=== PATIENT | male | born 1965 | race Caucasian/White ===

== ENCOUNTER 2017-12-20 19:47 | Emergency (ER) | payer BC ==
[2017-12-20 19:53] VITALS: BP 136/93; PULSE 86; RESP 18; TEMP 97.9
[2017-12-20] MEDS ORDERED: HYDROcodone/APAP 5-325MG 1 EACH TAB PO STA (20:23)
[2017-12-20] MEDS ORDERED: ceFAZolin 1,000 MG VIAL IM STA (20:23)
[2017-12-20] MEDS ORDERED: LIDOCAINE 1% INJ 10MG/ML (20 ML MDV) SQ ONE (20:33)
--- NOTE | 2017-12-20 20:38 | XR ---
EXAMINATION TYPE: XR finger LT DATE OF EXAM: 12/20/2017 COMPARISON: NONE HISTORY: Laceration of thumb TECHNIQUE: 3 views FINDINGS: There is soft tissue deformity on the dorsum of the IP joint of the thumb consistent with l aceration. I see no fracture nor dislocation. Joint spaces are normal. IMPRESSION: Laceration deformity. No fracture seen.
--- NOTE | 2017-12-20 21:37 | ED ---
General Adult HPI - General Chief complaint: Wound/Laceration Stated complaint: Lac on thumb Time Seen by Provider: 12/20/17 20:10 Source: patient, RN notes reviewed Mode of arrival: ambulatory Limitations: no limitations - History of Present Illness Initial comments: 52-year-old male presents to the emergency department for a chief complaint of laceration to the left thumb 1 hour. Patient states he was using a crossbow when he had his thumb in the wrong area and the string lacerated his finger. Patient denies any difficulty moving the thumb. Patient states it did immediately start bleeding. Patient is up-to-date on tetanus in the past 4 years. He denies any other injuries. Patient has no other complaints at this time including shortness of breath, chest pain, abdominal pain, nausea or vomiting, headache, or visual changes. - Related Data Home Medications Medication Instructions Recorded Confirmed Lisinopril [Zestril] 20 mg PO DAILY 09/18/13 12/05/15 Previous Rx's Medication Instructions Recorded Cephalexin [Keflex] 500 mg PO Q8H 7 Days cap 12/20/17 Allergies Allergy/AdvReac Type Severity Reaction Status Date / Time Penicillins Allergy Rash/Hives Verified 12/01/15 08:10 Review of Systems ROS Statement: Those systems with pertinent positive or pertinent negative responses have been documented in the HPI. ROS Other: All systems not noted in ROS Statement are negative. Past Medical History Past Medical History: Hyperlipidemia, Hypertension History of Any Multi-Drug Resistant Organisms: None Reported Past Surgical History: Hernia Repair, Orthopedic Surgery Additional Past Surgical History / Comment(s): LT KNEE MENISCUS REPAIR Past Anesthesia/Blood Transfusion Reactions: No Reported Reaction Past Psychological History: No Psychological Hx Reported Smoking Status: Current every day smoker Past Alcohol Use History: Daily Past Drug Use History: None Reported - Past Family History Mother Family Medical History: No Reported History General Exam Limitations: no limitations General appearance: alert, in no apparent distress Head exam: Present: atraumatic, normocephalic, normal inspection Eye exam: Present: normal appearance, PERRL, EOMI. Absent: scleral icterus, conjunctival injection, periorbital swelling ENT exam: Present: normal exam, mucous membranes moist Neck exam: Present: normal inspection, full ROM. Absent: tenderness, meningismus, lymphadenopathy Respiratory exam: Present: normal lung sounds bilaterally. Absent: respiratory distress, wheezes, rales, rhonchi, stridor Cardiovascular Exam: Present: regular rate, normal rhythm, normal heart sounds. Absent: systolic murmur, diastolic murmur, rubs, gallop, clicks Extremities exam: Present: full ROM (Full range of motion of the left thumb including the MCP and IP joints.), tenderness (Tenderness in the left thumb), normal capillary refill (Blurry refill less than 2 seconds in the left thumb. Radial pulse 2+ in the left upper extremity.), other (Patient has a 5 cm flap- like laceration involving the left dorsal IP joint of the thumb. No tendon injury evident. No bone exposure evident. No spreading or streaking redness or evidence of infection.) Course Vital Signs 12/20/17 19:48 Temperature 97.9 F Pulse Rate 86 Respiratory 18 Rate Blood Pressure 136/93 O2 Sat by Pulse 100 Oximetry Procedures - Laceration Laceration #1 Consent Obtained: verbal consent Indication: laceration Site: other (Left thumb) Size (cm): 5 Description: flap Depth: involves muscle layer Anesthetic Used: lidocaine 1% Anesthesia Technique: nerve block Amount (mls): 6 Pre-repair: wound explored, irrigated extensively (Soaked in iodine in sterile water, irrigated with a liter of sterile water, then irrigated with saline pressure irrigation), deep structures intact, wound margins revised Type of Sutures: other (Ethilon) Size of Sutures: 5-0 Number of Sutures: 13 Technique: simple, interrupted Patient Tolerated Procedure: well, no complications Medical Decision Making - Medical Decision Making 52-year-old male presents to the emergency determine for chief complaint of laceration to the left thumb occurring about one hour ago. Patient lacerated his thumb on the string of a cross bow. He denies any other injury or pain in the hand. On exam there is a 5 cm flap-like laceration involving the dorsal IP joint of the left thumb. Tenderness over the left thumb, no tenderness in the rest of the left hand. No scaphoid tenderness. Patient does have full range of motion of the left thumb including the MCP and IP joints. Neurovascular intact in the left thumb. X-ray shows no fracture or foreign bodies. Patient was given IM Ancef due to nature of injury although bone and tendon were not exposed. It was then irrigated extensively with sterile water and saline. Wound was closed successfully and well approximated with 13 simple interrupted sutures. Patient was given oral Keflex. He was also given a splint for the thumb. He will follow up with orthopedics in one to 2 days. He was educated to return in 7-10 days to have sutures removed. He was educated on return precautions including those for infection. All questions were answered. Patient agrees with this plan Disposition Clinical Impression: Laceration Disposition: HOME SELF-CARE Condition: Good Instructions: Care For Your Stitches (ED), Laceration (ED) Additional Instructions: Please take antibiotic as directed. Please follow-up with orthopedics in one to 2 days. Please return to the emergency department if you have any worsening symptoms or clotting signs of infection such as spreading or streaking redness, drainage, or fever. Return in 7-10 days to have sutures removed. Prescriptions: Cephalexin [Keflex] 500 mg PO Q8H 7 Days cap Is patient prescribed a controlled substance at d/c from ED?: No Referrals: Brandyn Adams MD [Primary Care Provider] - 1-2 days Jarrod Chandler DO [Doctor of Osteopathic Medicine] - 1-2 days Time of Disposition: 21:35
[2017-12-20] MEDS ORDERED: CEPHALEXIN 500MG STARTER PACK 4 CAP BTL PO STA (21:43)
== END 2017-12-20 21:47 | disposition home or self-care (01) ==
LOC: EC 19:47
DX: S61.012A Laceration without foreign body of left thumb without damage to nail, initial encounter (principal); I10 Essential (primary) hypertension; F17.200 Nicotine dependence, unspecified, uncomplicated; Z79.899 Other long term (current) drug therapy; Z88.0 Allergy status to penicillin
CPT/HCPCS: 73140; 99283; 12002; 96372; J0690; J2001